=== PATIENT | female | born 1990 | race Caucasian/White ===

== ENCOUNTER 2017-06-24 22:34 | Emergency (ER) | payer OTHER ==
[~2017-06-24] VITALS: Ht 165.1 cm; Wt 52.7 kg
[2017-06-25] MEDS ORDERED: BENADRY2 EX (00:06)
[2017-06-25 01:48] VITALS: BP 116/62
== END 2017-06-25 00:50 | disposition home or self-care (01) | DRG 918 ==
LOC: ED 22:34
DX: T49.91XA Poisoning by unspecified topical agent, accidental (unintentional), initial encounter (principal); L25.3 Unspecified contact dermatitis due to other chemical products; Y92.009 Unspecified place in unspecified non-institutional (private) residence as the place of occurrence of the external cause